=== PATIENT | female | born 2000 | race Caucasian/White ===

== ENCOUNTER 2023-08-08 11:31 | Outpatient (RCR) | payer BC, OTHER, SELFPAY ==
[2023-07-14 12:15] VITALS: BP 120/67
[2023-07-14] MEDS: NSS 1000 IV ×2 (12:15→13:16)
[2023-07-18] MEDS: NSS 1000 IV ×2 (13:20→14:21)
[2023-07-18 13:29] VITALS: BP 141/80
[2023-07-18 14:35] VITALS: BP 122/63
[2023-07-21] MEDS: NSS 1000 IV ×2 (12:00→13:05)
[2023-07-21 12:16] VITALS: BP 133/64
[2023-07-27] MEDS: NSS 1000 IV ×2 (13:20→14:22)
[2023-07-27 14:10] VITALS: BP 124/86
[2023-07-28 13:00] VITALS: BP 138/74
[2023-07-28] MEDS: NSS 1000 IV ×2 (13:00→13:57)
[2023-08-01] MEDS: NSS 1000 IV ×2 (13:12→14:14)
[2023-08-01 13:36] VITALS: BP 123/73
[2023-08-04] MEDS: NSS 1000 IV ×2 (13:35→14:38)
[2023-08-04 13:52] VITALS: BP 131/84
[2023-08-08 11:46] VITALS: BP 119/81
[2023-08-08] MEDS: NSS 1000 IV ×2 (11:55→12:58)
== END 2023-08-08 15:04 | disposition home or self-care (01) ==
LOC: OID 11:31
PROVIDERS: ATTENDING PHYSICIAN Pediatrics
DX: G90.1 Familial dysautonomia [Riley-Day] (principal); G90.A Postural orthostatic tachycardia syndrome [POTS] (principal); D89.40 Mast cell activation, unspecified; Q79.60 Ehlers-Danlos syndrome, unspecified
CPT/HCPCS: 96360; 96361

== ENCOUNTER 2023-09-07 13:30 | Outpatient (RCR) | payer BC, OTHER, SELFPAY ==
[2023-08-11 11:50] VITALS: BP 120/82
[2023-08-11] MEDS: NSS 1000 IV ×2 (12:00→13:01)
[2023-08-15] MEDS: NSS 1000 IV ×2 (13:15→14:16)
[2023-08-15 13:21] VITALS: BP 129/81
[2023-08-18] MEDS: NSS 1000 IV ×2 (13:24→14:29)
[2023-08-22 11:49] VITALS: BP 127/74
[2023-08-22] MEDS: NSS 1000 IV ×2 (11:57→12:59)
[2023-08-28 13:26] VITALS: BP 136/84
[2023-08-28] MEDS: NSS 1000 IV ×2 (13:35→14:36)
[2023-08-31] MEDS: NSS 1000 IV ×2 (13:47→14:47)
[2023-08-31 13:48] VITALS: BP 137/82
[2023-09-04 13:30] VITALS: BP 117/71
[2023-09-04] MEDS: NSS 1000 IV ×2 (13:31→14:39)
[2023-09-07 13:40] VITALS: BP 127/71
[2023-09-07] MEDS: NSS 1000 IV ×2 (13:45→14:42)
== END 2023-09-08 09:17 | disposition home or self-care (01) ==
LOC: OID 13:30
PROVIDERS: ATTENDING PHYSICIAN Pediatrics
DX: G90.A Postural orthostatic tachycardia syndrome [POTS] (principal); D89.40 Mast cell activation, unspecified; Q79.60 Ehlers-Danlos syndrome, unspecified; G90.1 Familial dysautonomia [Riley-Day]
CPT/HCPCS: 96360; 96361

== ENCOUNTER 2023-10-06 11:34 | Outpatient (RCR) | payer BC, OTHER, SELFPAY ==
[2023-09-12] MEDS: NSS 1000 IV ×2 (13:09→14:14)
[2023-09-12 13:13] VITALS: BP 128/82
[2023-09-14 13:17] VITALS: BP 134/71
[2023-09-14] MEDS: NSS 1000 IV ×2 (13:26→14:32)
[2023-09-19 11:44] VITALS: BP 117/73
[2023-09-19] MEDS: NSS 1000 IV ×2 (12:01→13:00)
[2023-10-04] MEDS: NSS 1000 IV (13:25)
[2023-10-04 13:28] VITALS: BP 147/71
[2023-10-06 11:59] VITALS: BP 131/76
[2023-10-06] MEDS: NSS 1000 IV ×2 (11:59→13:00)
== END 2023-10-10 23:59 | disposition home or self-care (01) ==
LOC: OID 11:34
PROVIDERS: ATTENDING PHYSICIAN Pediatrics
DX: G90.A Postural orthostatic tachycardia syndrome [POTS] (principal); D89.40 Mast cell activation, unspecified; Q79.60 Ehlers-Danlos syndrome, unspecified; G90.1 Familial dysautonomia [Riley-Day]
CPT/HCPCS: 96360; 96361

== ENCOUNTER 2023-10-11 13:10 | Outpatient (RCR) | payer BC, OTHER, SELFPAY ==
[2023-10-11 13:15] VITALS: BP 130/68
[2023-10-11] MEDS: NSS 1000 IV ×2 (13:22→14:23)
== END 2023-11-10 23:59 | disposition home or self-care (01) ==
LOC: OID 13:10
PROVIDERS: ATTENDING PHYSICIAN Pediatrics
DX: G90.A Postural orthostatic tachycardia syndrome [POTS] (principal); D89.40 Mast cell activation, unspecified; Q79.60 Ehlers-Danlos syndrome, unspecified; G90.1 Familial dysautonomia [Riley-Day]
CPT/HCPCS: 96360; 96361

== ENCOUNTER → 2024-03-27 09:25 | Outpatient (REF) | payer BC, SELFPAY ==
[2024-03-27 10:29] LABS: INR 1.01; PT 13.4 Sec (11.4-14.6)
== END ==
LOC: RAD 09:25
PROVIDERS: Physician Assistant; ATTENDING PHYSICIAN Specialist; FAMILY PHYSICIAN Internal Medicine
DX: G96.00 Cerebrospinal fluid leak, unspecified (principal); Z01.812 Encounter for preprocedural laboratory examination; Z01.818 Encounter for other preprocedural examination
CPT/HCPCS: 36415; 62305; 72126; 72129; 72132; 85610; Q9967

== ENCOUNTER 2024-09-06 11:35 | Outpatient (RCR) | payer BC, OTHER, SELFPAY ==
[2024-08-14 11:45] VITALS: BP 157/112
[2024-08-14] MEDS: NSS 1000 IV (11:57)
[2024-08-14 12:58] VITALS: BP 140/90
[2024-08-23 11:45] VITALS: BP 154/71
[2024-08-23] MEDS: NSS 1000 IV ×2 (12:03→14:01)
[2024-08-23] MEDS: NSS IV (14:15)
[2024-08-28 10:51] VITALS: BP 134/89
[2024-08-28] MEDS: NSS 1000 IV ×2 (11:04→12:04)
[2024-08-30] MEDS: NSS 1000 IV ×2 (11:49→13:35)
[2024-08-30 11:55] VITALS: BP 127/94
[2024-09-04 11:55] VITALS: BP 137/91
[2024-09-04] MEDS: NSS 1000 IV ×2 (11:55→13:44)
[2024-09-06 11:45] VITALS: BP 125/82
[2024-09-06] MEDS: NSS 1000 IV ×2 (12:00→12:58)
== END 2024-09-09 08:38 | disposition home or self-care (01) ==
LOC: OID 11:35
PROVIDERS: ATTENDING PHYSICIAN Internal Medicine; FAMILY PHYSICIAN Internal Medicine
DX: Q79.60 Ehlers-Danlos syndrome, unspecified (principal); D89.40 Mast cell activation, unspecified; G90.A Postural orthostatic tachycardia syndrome [POTS]
CPT/HCPCS: 96360; 96361

== ENCOUNTER 2024-09-23 11:32 | Outpatient (RCR) | payer BC, OTHER, SELFPAY ==
[2024-09-10 11:40] VITALS: BP 127/81
[2024-09-10] MEDS: NSS 1000 IV ×2 (11:53→12:58)
[2024-09-12 11:29] VITALS: BP 133/78
[2024-09-12] MEDS: NSS 1000 IV ×2 (11:45→12:44)
[2024-09-18 11:45] VITALS: BP 135/79
[2024-09-18] MEDS: NSS 1000 IV ×2 (11:55→13:05)
[2024-09-23 11:57] VITALS: BP 123/68
[2024-09-23] MEDS: NSS 1000 IV ×2 (11:58→13:02)
== END 2024-09-24 11:20 | disposition home or self-care (01) ==
LOC: OID 11:32
PROVIDERS: ATTENDING PHYSICIAN Internal Medicine; FAMILY PHYSICIAN Internal Medicine
DX: Q79.60 Ehlers-Danlos syndrome, unspecified (principal); D89.40 Mast cell activation, unspecified; G90.A Postural orthostatic tachycardia syndrome [POTS]
CPT/HCPCS: 96360; 96361